=== PATIENT | male | born 1945 | race Caucasian/White ===

== ENCOUNTER 2017-05-31 13:14 | Emergency (ER) | payer MEDICARE ==
[~2017-05-31] VITALS: Wt 50.9 kg
[2017-05-31 16:40] VITALS: BP 137/91
== END 2017-05-31 15:44 | disposition other institution (70) ==
LOC: ED 13:14
DX: E87.1 Hypo-osmolality and hyponatremia (principal); I10 Essential (primary) hypertension; E46 Unspecified protein-calorie malnutrition; F10.10 Alcohol abuse, uncomplicated; J44.9 Chronic obstructive pulmonary disease, unspecified; K21.9 Gastro-esophageal reflux disease without esophagitis; F17.200 Nicotine dependence, unspecified, uncomplicated

== ENCOUNTER 2017-05-31 15:44 | Inpatient (IN) | payer MEDICARE ==
[~2017-05-31] VITALS: Ht 152.4 cm; Wt 48.5 kg
--- NOTE | 2017-05-31 16:00 | NUR ---
Pt admitted to room 206. Alert and oriented. Reports abd pain has improved from ER visit but continues to feel nauseated. Resting in bed. Oriented to room and surroudings. IV to left AC that was started in ER. Pt educated on importance of fluid restrition and pt verbalizes understanding. Seizure precautions in place. Call light in reach and bed alarm on.
[2017-05-31 16:17] VITALS: BP 137/91
[2017-05-31 18:35] VITALS: BP 118/72
--- NOTE | 2017-05-31 19:35 | NUR ---
Assessment complete. Pt alert and oriented at this time. Pt c/o pain in abd, left leg and right knee. Rates pain 7/10. Will give Ultram. O2 on at 2L NC. LS clear in upper lobes but dim in bases. Pt has active BS but states LBM was 2 days ago. States he is passing gas, but is slightly nauseated. Will monitor. pt report eating well. IV in LAC WNL. Pt does have pads on rails for siezure precautions d/t low sodium level. Pt is on 1500 ml fluid restriction. Pt denies any needs at this time. Reviewed call light and bed alarm.
[2017-05-31 23:26] VITALS: BP 115/76
--- NOTE | 2017-06-01 01:07 | NUR ---
Report given to FARHAN Rust.
--- NOTE | 2017-06-01 01:20 | NUR ---
Pt requests pain medication for 05/01 pain to R leg. Reports that he has fallen several times at home since d/c from [facility] and thinks he may have hurt it during a fall. Pt also asks about getting something to help him sleep as he is having trouble falling/staying asleep. Tell pt that request will be made to provider as there is nothing specifically for sleep on his MAR.
--- NOTE | 2017-06-01 02:00 | NUR ---
Upon return to pt room to reassess pain, pt noted to be sleeping.
--- NOTE | 2017-06-01 03:00 | NUR ---
Pt calls, asks if any medication has been added to MAR for sleep. Inform that upon reassessment, pt was sleeping. Inform provider of pt request, benadryl added to MAR and given at this time.
[2017-06-01 03:08] VITALS: BP 124/77
[2017-06-01 06:36] VITALS: BP 109/74
--- NOTE | 2017-06-01 08:03 | NUR ---
Dr. Cameron notified of critical lab values, and patient's request for a stool softener and laxative. New orders received.
--- NOTE | 2017-06-01 09:25 | NUR ---
Valentina Medina PA-C at bedside.
[2017-06-01 10:55] VITALS: BP 101/74
[2017-06-01 15:11] VITALS: BP 112/76
[2017-06-01 18:32] VITALS: BP 92/63
--- NOTE | 2017-06-01 21:38 | NUR ---
PT UP WITH STAFF AND AMBULATED TO THE ER AND BACK TO ROOM AND THEN TO THE NURSES STATION AND BACK TO THE ROOM WITH GAIT BELT, SBA AND WHEELED WALKER FROM HOME. STATES THAT HE LIKE HIS WALKER BETTER. PT C/O LEG PAIN STATES THAT HE ALWAYS HAS IT AND RATES IT AT A 6, REQUESTS TO HAVE TRAMADOL WITH HS MED[facility]. PT TAKES OFF O2 AND PUTS IT ON WHEN HE WANTS, STATES THAT HE USES IT WHILE IN BED.
[2017-06-01 22:30] VITALS: BP 122/81
--- NOTE | 2017-06-01 22:34 | NUR ---
PT ACROSS PEREZ FROM THIS PT CALLED NURSING STAFF STATING THAT THIS PT HAD FALLEN, FOUND PT SITTING ON FLOOR IN FRONT OF SINK IN PT ROOM WITH WC INFRONT OF HIM. PT STATES THAT HE GOT UP TO USE BATHROOM. PT BED ALARM OFF. ASKED PT IF HE TURNED IT OFF IT WAS TURNED ON BY THIS NURSE AFTER PT WALK EARLIER. PT STATES "I KNOW HOW". PT ABLE TO MOVE ALL EXTREMITIES, SLIGHTLY REDDENED AREA ON COCCYX, DENIES PAIN IN THAT AREA. PT IS UNSTEADY, ASSISTED BACK TO BED AND ALARM TURNED ON AND CONTROLLS LOCKED. PT PLACED BACK ON OXYGEN. VSS
[2017-06-02 02:38] VITALS: BP 122/80
[2017-06-02 06:28] VITALS: BP 109/73
--- NOTE | 2017-06-02 08:07 | NUR ---
Valentina Medina PA-C at bedside.
[2017-06-02 11:00] VITALS: BP 115/87
--- NOTE | 2017-06-02 11:00 | NUR ---
Pt will discharge to [facility] for continued care in their SNF with an anticipated less than 30 day stay, although if pt adjusts well, it would benefit him to continue care in LTCF due to his h/o self neglect and his home being to hot for him to maintain good health. There is a potential pt will need LTC placement, which at this point remains to be determined. LTCF staff is aware, pt records are sent to [facility] and they accept pt. Pt is agreeable to going to LTC for continued care in SNF LOC.
[2017-06-02 13:05] VITALS: BP 110/72
[2017-06-02 13:22] VITALS: BP 110/72
--- NOTE | 2017-06-02 13:43 | NUR ---
Patient alert and oriented. States pain to legs has improved since taking tramadol. Oxygen at 2 liters via nasal cannula. Denies shortness of breath or dizziness. Denies nausea today. Denies needs or questions at this time. Discharged [place] [facility]. Out of facility to [facility] via wheelchair with [facility] staff.
== END 2017-06-02 13:43 | DRG 641 ==
LOC: MED/SURG 15:44
PROVIDERS: ADMIT Physician Assistant
DX: E87.1 Hypo-osmolality and hyponatremia (principal); E46 Unspecified protein-calorie malnutrition; J44.9 Chronic obstructive pulmonary disease, unspecified; I10 Essential (primary) hypertension; F10.10 Alcohol abuse, uncomplicated; K21.9 Gastro-esophageal reflux disease without esophagitis; R53.81 Other malaise; W18.39XA Other fall on same level, initial encounter; Y92.230 Patient room in hospital as the place of occurrence of the external cause; Y90.0 Blood alcohol level of less than 20 mg/100 ml
CPT/HCPCS: J1650

== ENCOUNTER → 2017-06-05 | Outpatient (REF) ==
[2017-06-02 13:22] VITALS: BP 110/72
== END ==
LOC: LAB 06:25
DX: E87.1 Hypo-osmolality and hyponatremia (principal)

== ENCOUNTER → 2017-06-15 | Outpatient (REF) ==
[2017-06-02 13:22] VITALS: BP 110/72
== END ==
LOC: LAB 05:35
DX: I10 Essential (primary) hypertension (principal)

== ENCOUNTER → 2017-07-11 | Outpatient (CLI) | payer MEDICARE | LOC: LAB 09:47 | DX: I10 Essential (primary) hypertension (principal); D64.9 Anemia, unspecified; R73.02 Impaired glucose tolerance (oral); R97.20 Elevated prostate specific antigen [PSA]; E78.2 Mixed hyperlipidemia; N52.03 Combined arterial insufficiency and corporo-venous occlusive erectile dysfunction; R20.2 Paresthesia of skin ==

== ENCOUNTER → 2017-08-28 | Outpatient (CLI) | payer MEDICARE | LOC: LAB 06:00 | DX: E03.9 Hypothyroidism, unspecified (principal) ==

== ENCOUNTER 2017-11-27 14:13 | Observation (INO) | payer MEDICARE, MEDICAID ==
[~2017-11-27] VITALS: Ht 180.3 cm; Wt 48.7 kg
[2017-11-27] MEDS ORDERED: SILDENAFIL CITR20 MG PO (14:25)
[2017-11-27] MEDS ORDERED: FLUOXETINE HCL10 MG PO (14:25)
[2017-11-27] MEDS ORDERED: SYMBICORT1 AE2 IH (14:25)
[2017-11-27] MEDS ORDERED: TRAMADOL 50 MG TAB PO (14:26)
[2017-11-27] MEDS ORDERED: LEVOTHYROXIN0.075 MG PO (14:26)
[2017-11-27] MEDS ORDERED: RT SPIRIVA INH18 MCG IH (14:26)
[2017-11-27] MEDS ORDERED: PROAIR HFA0.09 MG/AC IH (14:26)
[2017-11-27] MEDS ORDERED: SINGULAIR 110 MG/TAB PO (14:27)
[2017-11-27] MEDS ORDERED: AMLODIPINE BESYL5 MG PO (14:27)
[2017-11-27 15:05] LABS: EOS # 0.1 (0.04-0.40); HEMATOCRIT 39.1 % (42.0-52.0); HEMOGLOBIN 12.9 g/dL (13.5-18.0); LYMPH# 1.8 (1.50-4.00); MEAN CELL VOLUME 86 fl (78-100); MEAN CORPUSCULAR HEMOGLOBIN 28 pg (27-31); MEAN CORPUSCULAR HGB CONC 33 g/dL (33-37); MEAN PLATELET VOLUME 9.1 fl (7.4-10.4); NEU # 6.8 (1.40-6.50); RED BLOOD COUNT 4.54 M/mm3 (4.20-5.60); RED CELL DISTRIBUTION WIDTH 13.9 % (11.5-14.5); WHITE BLOOD COUNT 9.7 K/mm3 (4.8-10.8)
[2017-11-27 15:08] LABS: ALBUMIN 3.6 g/dL (3.5-5.0); BUN/CREATININE RATIO 19.8 (6.0-26.0); POTASSIUM 4.2 mmol/L (3.6-5.0); TOTAL BILIRUBIN 0.3 mg/dL (0.2-1.3)
[2017-11-27 15:27] LABS: PLATELET COUNT 588 K/mm3 (130-400)
[2017-11-27 15:43] LABS: D-DIMER 4.23 mg/L FEU (0.15-0.50)
[2017-11-27 19:08] LABS: URINE APPEARANCE CLEAR; URINE BILIRUBIN NEGATIVE (NEGATIVE); URINE BLOOD NEGATIVE (NEGATIVE); URINE COLOR YELLOW; URINE GLUCOSE NEGATIVE (NEGATIVE); URINE KETONE 1+ (NEGATIVE); URINE LEUKOCYTE ESTERASE NEGATIVE (NEGATIVE); URINE NITRATE NEGATIVE (NEGATIVE); URINE PROTEIN(semi-quant) TRACE mg/dL (NEGATIVE); URINE UROBILINOGEN NORMAL (NORMAL)
[2017-11-27 21:04] VITALS: BP 141/85
[2017-11-27 22:37] VITALS: BP 120/75
[2017-11-28 02:21] VITALS: BP 135/79
[2017-11-28 06:26] VITALS: BP 136/85
[2017-11-28 06:38] LABS: HEMATOCRIT 38.8 % (42.0-52.0); HEMOGLOBIN 12.8 g/dL (13.5-18.0); MEAN CELL VOLUME 87 fl (78-100); MEAN CORPUSCULAR HEMOGLOBIN 29 pg (27-31); MEAN CORPUSCULAR HGB CONC 33 g/dL (33-37); MEAN PLATELET VOLUME 8.9 fl (7.4-10.4); RED BLOOD COUNT 4.47 M/mm3 (4.20-5.60); RED CELL DISTRIBUTION WIDTH 13.9 % (11.5-14.5); WHITE BLOOD COUNT 6.1 K/mm3 (4.8-10.8)
[2017-11-28 06:58] LABS: PLATELET COUNT 566 K/mm3 (130-400)
[2017-11-28 06:59] LABS: ALBUMIN 3.6 g/dL (3.5-5.0); BUN/CREATININE RATIO 24.6 (6.0-26.0); POTASSIUM 4.5 mmol/L (3.6-5.0); TOTAL BILIRUBIN 0.2 mg/dL (0.2-1.3)
[2017-11-28 07:03] LABS: LYMPHOCYTE 23 % (20-51); NEUTROPHILS 77 % (42-75)
[2017-11-28 11:00] VITALS: BP 124/66
[2017-11-28 15:18] VITALS: BP 125/81
== END 2017-11-28 08:33 | disposition other institution (70) ==
LOC: ED 14:13 → MED/SURG 20:00
PROVIDERS: Nurse Practitioner; ADMIT Nurse Practitioner Primary Care
DX: J44.1 Chronic obstructive pulmonary disease with (acute) exacerbation (principal); E87.1 Hypo-osmolality and hyponatremia; I10 Essential (primary) hypertension; R74.9 Abnormal serum enzyme level, unspecified; I45.10 Unspecified right bundle-branch block; F17.200 Nicotine dependence, unspecified, uncomplicated; F32.9 Major depressive disorder, single episode, unspecified; E07.9 Disorder of thyroid, unspecified
CPT/HCPCS: G0378; J0456; J0696; J1650; J2930; J7030; J7050; Q9967

== ENCOUNTER 2017-11-28 08:34 | Inpatient (IN) | payer MEDICARE, MEDICAID ==
[~2017-11-28] VITALS: Ht 180.3 cm; Wt 48.7 kg
[~2017-11-28 08:34] MED LIST: AMLODIPINE BESYL5 MG PO; FLUOXETINE HCL10 MG PO; LEVOTHYROXIN0.075 MG PO; PROAIR HFA0.09 MG/AC IH; RT SPIRIVA INH18 MCG IH; SILDENAFIL CITR20 MG PO; SINGULAIR 110 MG/TAB PO; SYMBICORT1 AE2 IH; TRAMADOL 50 MG TAB PO
[2017-11-28 10:04] VITALS: BP 136/85
[2017-11-28 14:04] VITALS: BP 124/66
[2017-11-28 18:04] VITALS: BP 125/81
[2017-11-28 19:04] VITALS: BP 147/64
[2017-11-28 19:18] VITALS: BP 124/66
[2017-11-28 22:57] VITALS: BP 139/80
[2017-11-29 02:34] VITALS: BP 132/74
[2017-11-29 06:23] VITALS: BP 130/76
[2017-11-29 06:26] LABS: BUN/CREATININE RATIO 21.8 (6.0-26.0); CALCIUM 8.7 mg/dL (8.4-10.2); POTASSIUM 4.1 mmol/L (3.6-5.0)
[2017-11-29 11:10] VITALS: BP 135/81
[2017-11-29 15:05] VITALS: BP 130/75
[2017-11-29 18:23] VITALS: BP 144/80
[2017-11-29 23:22] VITALS: BP 125/72
[2017-11-30 02:52] VITALS: BP 142/82
[2017-11-30 06:38] VITALS: BP 161/85
[2017-11-30 11:01] VITALS: BP 104/67; BP 145/87
[2017-11-30 15:15] VITALS: BP 155/90
[2017-11-30 18:20] VITALS: BP 155/89; BP 155/90
[2017-11-30 23:07] VITALS: BP 132/82
[2017-12-01 03:15] VITALS: BP 161/88
[2017-12-01 06:26] VITALS: BP 153/90
[2017-12-01] MEDS ORDERED: CEFDINIR300 MG PO (08:01)
[2017-12-01] MEDS ORDERED: IPRATROPIUM BROM3 M1 IH (08:02)
[2017-12-01] MEDS ORDERED: CLOPIDOGREL PO (08:03)
[2017-12-01] MEDS ORDERED: METOPROLOL SUCC50 M1 PO (08:03)
[2017-12-01] MEDS ORDERED: PRINIVIL5 M1 PO (08:04)
[2017-12-01] MEDS ORDERED: PROTONIX TR40 M1 PO (08:05)
[2017-12-01] MEDS ORDERED: MUCUS ER1200 MG PO (08:05)
[2017-12-01 08:31] VITALS: BP 153/90
== END 2017-12-01 09:45 | DRG 281 ==
LOC: MED/SURG 08:34
PROVIDERS: ADMIT Internal Medicine
DX: I21.A1 Myocardial infarction type 2 (principal); J44.1 Chronic obstructive pulmonary disease with (acute) exacerbation; E87.1 Hypo-osmolality and hyponatremia; I10 Essential (primary) hypertension; E03.9 Hypothyroidism, unspecified; F17.210 Nicotine dependence, cigarettes, uncomplicated
CPT/HCPCS: J0456; J0696; J1650; J2930; J7030; J7050; J7512

== ENCOUNTER → 2017-12-01 | Outpatient (CLI) | payer MEDICARE, MEDICAID ==
[~2017-12-01] MED LIST changes: +CEFDINIR300 MG PO; +CLOPIDOGREL PO; +IPRATROPIUM BROM3 M1 IH; +METOPROLOL SUCC50 M1 PO; +MUCUS ER1200 MG PO; +PRINIVIL5 M1 PO; +PROTONIX TR40 M1 PO
[2017-12-01 08:31] VITALS: BP 153/90
== END ==
LOC: CARDREHAB 09:47
DX: I21.4 Non-ST elevation (NSTEMI) myocardial infarction (principal); J44.9 Chronic obstructive pulmonary disease, unspecified
CPT/HCPCS: A9500

== ENCOUNTER → 2017-12-18 | Day surgery (SDC) | payer MEDICARE, MEDICAID ==
[2017-12-01 08:31] VITALS: BP 153/90
== END ==
LOC: MSO 09:46
DX: R11.0 Nausea (principal); R63.4 Abnormal weight loss; R62.7 Adult failure to thrive; Z87.891 Personal history of nicotine dependence; F10.11 Alcohol abuse, in remission; K44.9 Diaphragmatic hernia without obstruction or gangrene; I10 Essential (primary) hypertension; I25.2 Old myocardial infarction; J44.9 Chronic obstructive pulmonary disease, unspecified; K21.9 Gastro-esophageal reflux disease without esophagitis; Z79.02 Long term (current) use of antithrombotics/antiplatelets; Z79.82 Long term (current) use of aspirin; E03.9 Hypothyroidism, unspecified; F41.9 Anxiety disorder, unspecified; D64.9 Anemia, unspecified
CPT/HCPCS: J2704; J7120

== ENCOUNTER → 2018-01-08 | Outpatient (CLI) | payer MEDICARE, MEDICAID ==
[2018-01-08 12:26] LABS: EOS # 0.2 (0.04-0.40); EOS % 2.2 % (0.0-4.0); HEMATOCRIT 41.7 % (42.0-52.0); HEMOGLOBIN 13.5 g/dL (13.5-18.0); LYMPH# 1.7 (1.50-4.00); MEAN CELL VOLUME 90 fl (78-100); MEAN CORPUSCULAR HEMOGLOBIN 29 pg (27-31); MEAN CORPUSCULAR HGB CONC 32 g/dL (33-37); NEU # 6.1 (1.40-6.50); PLATELET COUNT 297 K/mm3 (130-400); RED BLOOD COUNT 4.65 M/mm3 (4.20-5.60); WHITE BLOOD COUNT 9.1 K/mm3 (4.8-10.8)
[2018-01-08 12:38] LABS: ALBUMIN 4.2 g/dL (3.5-5.0); BUN/CREATININE RATIO 18.1 (6.0-26.0); CALCIUM 9.1 mg/dL (8.4-10.2); TOTAL BILIRUBIN 0.2 mg/dL (0.2-1.3); TOTAL PROTEIN 7.5 g/dL (6.3-8.2)
[2018-01-08 13:29] LABS: ERYTHROCYTE SEDIMENTATION RATE 9 mm/hr (0-20)
== END ==
LOC: LAB 12:13
PROVIDERS: Internal Medicine
DX: E78.2 Mixed hyperlipidemia (principal); I10 Essential (primary) hypertension; E03.4 Atrophy of thyroid (acquired)

== ENCOUNTER → 2018-06-07 | Outpatient (CLI) | payer MEDICARE, MEDICAID ==
[2018-06-07 06:34] LABS: EOS # 0.2 (0.04-0.40); EOS % 2.5 % (0.0-4.0); HEMATOCRIT 39.8 % (42.0-52.0); HEMOGLOBIN 13.1 g/dL (13.5-18.0); LYMPH# 2.6 (1.50-4.00); MEAN CELL VOLUME 91 fl (78-100); MEAN CORPUSCULAR HEMOGLOBIN 30 pg (27-31); MEAN CORPUSCULAR HGB CONC 33 g/dL (33-37); MEAN PLATELET VOLUME 10.4 fl (7.4-10.4); MONO # 0.7 (0.20-0.80); NEU # 4.4 (1.40-6.50); PLATELET COUNT 259 K/mm3 (130-400); RED BLOOD COUNT 4.37 M/mm3 (4.20-5.60); RED CELL DISTRIBUTION WIDTH 14.2 % (11.5-14.5); WHITE BLOOD COUNT 8.1 K/mm3 (4.8-10.8)
[2018-06-07 07:00] LABS: ALBUMIN 3.9 g/dL (3.5-5.0); BUN/CREATININE RATIO 20.1 (6.0-26.0); CALCIUM 8.8 mg/dL (8.4-10.2); POTASSIUM 4.2 mmol/L (3.6-5.0); TOTAL BILIRUBIN 0.2 mg/dL (0.2-1.3); TOTAL PROTEIN 6.7 g/dL (6.3-8.2)
== END ==
LOC: LAB 06:05
PROVIDERS: Internal Medicine
DX: I10 Essential (primary) hypertension (principal); E78.5 Hyperlipidemia, unspecified

== ENCOUNTER → 2018-12-21 | Outpatient (CLI) | payer MEDICARE, MEDICAID ==
[2018-12-21 22:00] LABS: BASO # 0.1 (0.02-0.10); EOS # 0.2 (0.04-0.40); EOS % 1.6 % (0.0-4.0); HEMATOCRIT 47.7 % (42.0-52.0); HEMOGLOBIN 15.3 g/dL (13.5-18.0); LYMPH# 2.4 (1.50-4.00); MEAN CELL VOLUME 92 fl (78-100); MEAN CORPUSCULAR HEMOGLOBIN 30 pg (27-31); MEAN CORPUSCULAR HGB CONC 32 g/dL (33-37); NEU # 8.1 (1.40-6.50); PLATELET COUNT 313 K/mm3 (130-400); RED BLOOD COUNT 5.17 M/mm3 (4.20-5.60); RED CELL DISTRIBUTION WIDTH 14.2 % (11.5-14.5); WHITE BLOOD COUNT 11.8 K/mm3 (4.8-10.8)
[2018-12-21 22:06] LABS: ALBUMIN 4.8 g/dL (3.5-5.0); CALCIUM 9.6 mg/dL (8.4-10.2); POTASSIUM 4.4 mmol/L (3.6-5.0); TOTAL BILIRUBIN 0.4 mg/dL (0.2-1.3); TOTAL PROTEIN 8.3 g/dL (6.3-8.2)
[2018-12-21 23:29] LABS: ERYTHROCYTE SEDIMENTATION RATE 8 mm/hr (0-20)
== END ==
LOC: LAB 11:34
PROVIDERS: Internal Medicine
DX: I10 Essential (primary) hypertension (principal); E78.2 Mixed hyperlipidemia; Z12.5 Encounter for screening for malignant neoplasm of prostate

== ENCOUNTER → 2018-12-25 | Outpatient (CLI) | payer MEDICARE, MEDICAID | LOC: LAB 12:35 | DX: R73.02 Impaired glucose tolerance (oral) (principal) ==

== ENCOUNTER → 2018-12-26 | Outpatient (CLI) | payer MEDICARE, MEDICAID | LOC: LAB 12:14 | DX: R73.02 Impaired glucose tolerance (oral) (principal) ==

== ENCOUNTER → 2019-07-02 | Outpatient (CLI) | payer MEDICARE, MEDICAID ==
[2019-07-02 11:15] LABS: BASO # 0.1 (0.02-0.10); EOS # 0.4 (0.04-0.40); EOS % 3.9 % (0.0-4.0); HEMATOCRIT 46.8 % (42.0-52.0); HEMOGLOBIN 15.2 g/dL (13.5-18.0); LYMPH# 2.2 (1.50-4.00); MEAN CELL VOLUME 93 fl (78-100); MEAN CORPUSCULAR HEMOGLOBIN 30 pg (27-31); MEAN CORPUSCULAR HGB CONC 33 g/dL (33-37); MEAN PLATELET VOLUME 10.6 fl (7.4-10.4); MONO # 0.9 (0.20-0.80); NEU # 6.7 (1.40-6.50); PLATELET COUNT 274 K/mm3 (130-400); RED BLOOD COUNT 5.04 M/mm3 (4.20-5.60); RED CELL DISTRIBUTION WIDTH 13.8 % (11.5-14.5); WHITE BLOOD COUNT 10.3 K/mm3 (4.8-10.8)
[2019-07-02 11:21] LABS: POTASSIUM 4.4 mmol/L (3.5-5.1)
[2019-07-02 11:22] LABS: ALBUMIN 4.5 g/dL (3.4-4.8)
[2019-07-02 11:23] LABS: CALCIUM 9.6 mg/dL (8.3-10.5)
[2019-07-02 11:24] LABS: TOTAL PROTEIN 7.8 g/dL (6.2-8.1)
[2019-07-02 11:26] LABS: TOTAL BILIRUBIN 0.2 mg/dL (0.2-1.2)
== END ==
LOC: LAB 11:04
PROVIDERS: Internal Medicine
DX: I10 Essential (primary) hypertension (principal); E78.5 Hyperlipidemia, unspecified; R73.01 Impaired fasting glucose

== ENCOUNTER → 2019-08-07 | Outpatient (CLI) | payer MEDICARE, MEDICAID | LOC: RAD 15:00 | DX: J44.9 Chronic obstructive pulmonary disease, unspecified (principal); J84.89 Other specified interstitial pulmonary diseases ==

== ENCOUNTER → 2020-01-06 | Outpatient (CLI) | payer MEDICARE, MEDICAID ==
[2020-01-06 08:04] LABS: EOS # 0.1 (0.04-0.40); EOS % 1.1 % (0.0-4.0); HEMATOCRIT 42.2 % (42.0-52.0); HEMOGLOBIN 13.5 g/dL (13.5-18.0); MEAN CELL VOLUME 92 fl (78-100); MEAN CORPUSCULAR HEMOGLOBIN 29 pg (27-31); MEAN CORPUSCULAR HGB CONC 32 g/dL (33-37); MEAN PLATELET VOLUME 10.4 fl (7.4-10.4); MONO # 0.6 (0.20-0.80); NEU # 5.5 (1.40-6.50); PLATELET COUNT 364 K/mm3 (130-400); RED BLOOD COUNT 4.59 M/mm3 (4.20-5.60); WHITE BLOOD COUNT 8.3 K/mm3 (4.8-10.8)
[2020-01-09 12:51] LABS: ALBUMIN 3.9 g/dL (3.4-4.8)
[2020-01-09 12:52] LABS: POTASSIUM 4.5 mmol/L (3.5-5.1)
[2020-01-09 12:53] LABS: CALCIUM 9.6 mg/dL (8.3-10.5)
[2020-01-09 12:54] LABS: TOTAL PROTEIN 6.7 g/dL (6.2-8.1)
[2020-01-09 12:56] LABS: TOTAL BILIRUBIN 0.2 mg/dL (0.2-1.2)
== END ==
LOC: LAB 07:08
PROVIDERS: Internal Medicine
DX: E87.1 Hypo-osmolality and hyponatremia (principal); I10 Essential (primary) hypertension; E78.5 Hyperlipidemia, unspecified; R73.02 Impaired glucose tolerance (oral)

== ENCOUNTER → 2020-05-27 | Outpatient (CLI) | payer MEDICARE, MEDICAID ==
[2020-05-27 08:13] LABS: EOS # 0.2 (0.04-0.40); EOS % 2.6 % (0.0-4.0); HEMATOCRIT 46.9 % (42.0-52.0); HEMOGLOBIN 15.2 g/dL (13.5-18.0); LYMPH# 2.2 (1.50-4.00); MEAN CELL VOLUME 92 fl (78-100); MEAN CORPUSCULAR HEMOGLOBIN 30 pg (27-31); MEAN CORPUSCULAR HGB CONC 32 g/dL (33-37); MEAN PLATELET VOLUME 10.9 fl (7.4-10.4); MONO # 0.7 (0.20-0.80); NEU # 5.8 (1.40-6.50); PLATELET COUNT 248 K/mm3 (130-400); RED BLOOD COUNT 5.08 M/mm3 (4.20-5.60); RED CELL DISTRIBUTION WIDTH 13.6 % (11.5-14.5); WHITE BLOOD COUNT 8.9 K/mm3 (4.8-10.8)
[2020-05-27 08:17] LABS: ALBUMIN 4.6 g/dL (3.4-4.8); POTASSIUM 4.2 mmol/L (3.5-5.1)
[2020-05-27 08:18] LABS: CALCIUM 9.6 mg/dL (8.3-10.5)
[2020-05-27 08:20] LABS: TOTAL PROTEIN 8.1 g/dL (6.2-8.1)
[2020-05-27 08:21] LABS: TOTAL BILIRUBIN 0.3 mg/dL (0.2-1.2)
== END ==
LOC: LAB 07:37
PROVIDERS: Internal Medicine
DX: I10 Essential (primary) hypertension (principal); R97.20 Elevated prostate specific antigen [PSA]; E78.2 Mixed hyperlipidemia

== ENCOUNTER 2020-06-07 11:03 | Emergency (ER) | payer MEDICARE, MEDICAID ==
[~2020-06-07] VITALS: Ht 170.2 cm; Wt 81.2 kg
[2020-06-07] MEDS ORDERED: SILDENAFIL CITR20 M1 PO (11:27)
[2020-06-07] MEDS ORDERED: AFRIN PUMPMIST15 ML NS (11:29)
[2020-06-07] MEDS ORDERED: ASPIRIN 81M81 MG/TA2 PO (11:30)
[2020-06-07] MEDS ORDERED: BIOTENE DRY MO473 ML MM (11:31)
[2020-06-07] MEDS ORDERED: IPRATROPIUM BROM3 M1 IH (11:32)
[2020-06-07] MEDS ORDERED: COLACE100 M1 PO (11:32)
[2020-06-07] MEDS ORDERED: INCRUSE EL62.5 MCG/A IH (11:33)
[2020-06-07 11:57] LABS: HEMATOCRIT 44.1 % (42.0-52.0); HEMOGLOBIN 14.4 g/dL (13.5-18.0); MEAN CELL VOLUME 93 fl (78-100); MEAN CORPUSCULAR HEMOGLOBIN 30 pg (27-31); MEAN CORPUSCULAR HGB CONC 33 g/dL (33-37); MEAN PLATELET VOLUME 10.5 fl (7.4-10.4); PLATELET COUNT 258 K/mm3 (130-400); RED BLOOD COUNT 4.75 M/mm3 (4.20-5.60); RED CELL DISTRIBUTION WIDTH 13.5 % (11.5-14.5); WHITE BLOOD COUNT 17.2 K/mm3 (4.8-10.8)
[2020-06-07 12:05] LABS: POTASSIUM 4.2 mmol/L (3.5-5.1); SODIUM 140 mmol/L (136-145)
[2020-06-07 12:06] LABS: CALCIUM 9.4 mg/dL (8.3-10.5)
[2020-06-07 12:07] LABS: GLUCOSE 95 mg/dL (75-110); LYMPHOCYTE 10 % (20-51); MONOCYTE 2 % (3-10); NEUTROPHILS 88 % (42-75)
[2020-06-07 12:08] LABS: CARBON DIOXIDE 25 mmol/L (23-31)
[2020-06-07 12:10] LABS: D-DIMER 0.24 mg/L FEU (0.15-0.50)
[2020-06-07 12:19] LABS: TROPONIN-I < 0.03 ng/mL (<0.030)
[2020-06-07] MEDS ORDERED: PREDNISONE20 M1 PO (14:08)
[2020-06-07] MEDS ORDERED: MORGIDOX 1X100100 MG PO (14:08)
[2020-06-07 14:45] VITALS: BP 135/96
== END 2020-06-07 14:45 | disposition home or self-care (01) ==
LOC: ED 11:03
PROVIDERS: Family Medicine
DX: J44.1 Chronic obstructive pulmonary disease with (acute) exacerbation (principal); E03.9 Hypothyroidism, unspecified; Z87.891 Personal history of nicotine dependence; Z79.890 Hormone replacement therapy
CPT/HCPCS: J0696; J2930

== ENCOUNTER → 2020-12-04 | Outpatient (CLI) | payer MEDICARE, MEDICAID ==
[~2020-12-04] MED LIST changes: +AFRIN PUMPMIST15 ML NS; +ASPIRIN 81M81 MG/TA2 PO; +BIOTENE DRY MO473 ML MM; +COLACE100 M1 PO; +INCRUSE EL62.5 MCG/A IH; +MORGIDOX 1X100100 MG PO; +PREDNISONE20 M1 PO; +SILDENAFIL CITR20 M1 PO
[2020-12-04 17:06] LABS: EOS # 0.3 (0.04-0.40); EOS % 3.2 % (0.0-4.0); HEMATOCRIT 43.6 % (42.0-52.0); HEMOGLOBIN 13.8 g/dL (13.5-18.0); LYMPH# 2.5 (1.50-4.00); MEAN CELL VOLUME 94 fl (78-100); MEAN CORPUSCULAR HEMOGLOBIN 30 pg (27-31); MEAN CORPUSCULAR HGB CONC 32 g/dL (33-37); NEU # 5.9 (1.40-6.50); PLATELET COUNT 266 K/mm3 (130-400); RED BLOOD COUNT 4.66 M/mm3 (4.20-5.60); RED CELL DISTRIBUTION WIDTH 13.4 % (11.5-14.5); WHITE BLOOD COUNT 9.8 K/mm3 (4.8-10.8)
[2020-12-04 17:14] LABS: ALBUMIN 3.9 g/dL (3.4-4.8)
[2020-12-04 17:15] LABS: POTASSIUM 4.1 mmol/L (3.5-5.1)
[2020-12-04 17:16] LABS: CALCIUM 8.6 mg/dL (8.3-10.5)
[2020-12-04 17:17] LABS: TOTAL PROTEIN 6.3 g/dL (6.2-8.1)
[2020-12-04 17:19] LABS: TOTAL BILIRUBIN 0.2 mg/dL (0.2-1.2)
[2020-12-04 17:24] LABS: MAGNESIUM 1.81 mg/dL (1.60-2.60)
== END ==
LOC: LAB 16:54
PROVIDERS: Internal Medicine
DX: K90.9 Intestinal malabsorption, unspecified (principal); E03.4 Atrophy of thyroid (acquired); E87.1 Hypo-osmolality and hyponatremia; J44.9 Chronic obstructive pulmonary disease, unspecified; I10 Essential (primary) hypertension

== ENCOUNTER → 2021-06-10 | Outpatient (CLI) | payer MEDICARE, MEDICAID ==
[~2021-06-10] MED LIST changes: +BETAMETHASONE D0.05% TOP; +DECADRON6 M1 PO; +ONDANSETRON HYDR4 MG PO; +VITAMIN D21250 MCG PO
[2021-06-10 11:53] LABS: URINE WBC 0 /hpf (0-3)
[2021-06-10 11:59] LABS: BASO # 0.06 (0.02-0.10); EOS # 0.23 (0.04-0.40); EOS % 2.6 % (0.0-4.0); HEMATOCRIT 43.5 % (42.0-52.0); HEMOGLOBIN 14.1 g/dL (13.5-18.0); LYMPH# 1.87 (1.50-4.00); MEAN CELL VOLUME 94 fl (78-100); MEAN CORPUSCULAR HEMOGLOBIN 30 pg (27-31); MEAN CORPUSCULAR HGB CONC 32 g/dL (33-37); MONO # 0.67 (0.20-0.80); NEU # 6.15 (1.40-6.50); PLATELET COUNT 259 K/mm3 (130-400); RED BLOOD COUNT 4.65 M/mm3 (4.20-5.60)
[2021-06-10 12:04] LABS: CALCIUM 9.7 mg/dL (8.3-10.5)
[2021-06-10 12:07] LABS: TOTAL BILIRUBIN 0.3 mg/dL (0.2-1.2)
[2021-06-10 12:31] LABS: URINE APPEARANCE HAZY; URINE BILIRUBIN NEGATIVE (NEGATIVE); URINE BLOOD NEGATIVE (NEGATIVE); URINE COLOR YELLOW; URINE GLUCOSE NEGATIVE (NEGATIVE); URINE KETONE NEGATIVE (NEGATIVE); URINE LEUKOCYTE ESTERASE NEGATIVE (NEGATIVE); URINE NITRATE NEGATIVE (NEGATIVE); URINE PROTEIN(semi-quant) NEGATIVE (NEGATIVE); URINE UROBILINOGEN NORMAL (NORMAL)
[2021-06-10 13:11] LABS: ERYTHROCYTE SEDIMENTATION RATE 10 mm/hr (0-20)
[2021-06-10 22:29] LABS: CREATININE OTHER SOURCE 36 mg/dL (())
== END ==
LOC: LAB 11:04
PROVIDERS: Internal Medicine
DX: Z12.5 Encounter for screening for malignant neoplasm of prostate (principal); E03.4 Atrophy of thyroid (acquired); I10 Essential (primary) hypertension; J44.9 Chronic obstructive pulmonary disease, unspecified; R73.03 Prediabetes; K90.9 Intestinal malabsorption, unspecified; L30.9 Dermatitis, unspecified; E55.9 Vitamin D deficiency, unspecified

== ENCOUNTER 2021-09-02 13:11 | Emergency (ER) | payer OTHER ==
[~2021-09-02 13:11] MED LIST changes: -BETAMETHASONE D0.05% TOP; -DECADRON6 M1 PO; -ONDANSETRON HYDR4 MG PO; -VITAMIN D21250 MCG PO
[2021-09-02] MEDS ORDERED: BETAMETHASONE D0.05% TOP (14:13)
[2021-09-02] MEDS ORDERED: VITAMIN D21250 MCG PO (14:13)
[2021-09-02 14:14] LABS: ALBUMIN 3.7 g/dL (3.4-4.8); POTASSIUM 4.2 mmol/L (3.5-5.1); SODIUM 126 mmol/L (136-145)
[2021-09-02] MEDS ORDERED: ONDANSETRON HYDR4 MG PO (14:14)
[2021-09-02 14:15] LABS: CALCIUM 8.4 mg/dL (8.3-10.5)
[2021-09-02 14:16] LABS: GLUCOSE 109 mg/dL (75-110); TOTAL PROTEIN 6.7 g/dL (6.2-8.1)
[2021-09-02 14:17] LABS: CARBON DIOXIDE 24 mmol/L (23-31)
[2021-09-02 14:18] LABS: TOTAL BILIRUBIN 0.3 mg/dL (0.2-1.2)
[2021-09-02 14:22] LABS: AST-SGOT 27 U/L (5-34)
[2021-09-02 14:23] LABS: ALT/SGPT 18 U/L (0-55)
[2021-09-02 14:29] LABS: BASO # 0.03 K/mm3 (0.02-0.10); EOS # 0.01 K/mm3 (0.04-0.40); EOS % 0.1 % (0.0-4.0); HEMATOCRIT 42.8 % (42.0-52.0); HEMOGLOBIN 14.4 g/dL (13.5-18.0); LYMPH# 0.89 K/mm3 (1.50-4.00); MEAN CELL VOLUME 90 fl (78-100); MEAN CORPUSCULAR HEMOGLOBIN 30 pg (27-31); MEAN CORPUSCULAR HGB CONC 34 g/dL (33-37); MEAN PLATELET VOLUME 11.2 fl (7.4-10.4); MONO # 0.55 K/mm3 (0.20-0.80); PLATELET COUNT 157 K/mm3 (130-400); RED BLOOD COUNT 4.74 M/mm3 (4.20-5.60); RED CELL DISTRIBUTION WIDTH 12.4 % (11.5-14.5); WHITE BLOOD COUNT 7.3 K/mm3 (4.8-10.8)
[2021-09-02 14:33] LABS: TROPONIN-I < 0.03 ng/mL (<0.030)
[2021-09-02 14:37] LABS: D-DIMER 0.55 mg/L FEU (0.15-0.50)
[2021-09-02] MEDS ORDERED: CEFDINIR300 MG PO (16:34)
[2021-09-02] MEDS ORDERED: DECADRON6 M1 PO (16:34)
[2021-09-02] MEDS ORDERED: MORGIDOX 1X100100 MG PO (16:35)
[2021-09-02 17:53] VITALS: BP 158/84
== END 2021-09-02 17:17 | disposition home or self-care (01) ==
LOC: ED 13:11
PROVIDERS: Nurse Practitioner Family
DX: U07.1 COVID-19 (principal); J44.1 Chronic obstructive pulmonary disease with (acute) exacerbation; I10 Essential (primary) hypertension; R09.02 Hypoxemia; I25.10 Atherosclerotic heart disease of native coronary artery without angina pectoris; E03.9 Hypothyroidism, unspecified; Z79.899 Other long term (current) drug therapy; Z79.51 Long term (current) use of inhaled steroids; Z79.890 Hormone replacement therapy; Z79.82 Long term (current) use of aspirin
CPT/HCPCS: J0696; J1100; J7030

== ENCOUNTER → 2021-10-21 | Outpatient (CLI) | payer MEDICARE, MEDICAID ==
[~2021-10-21] MED LIST changes: +BETAMETHASONE D0.05% TOP; +DECADRON6 M1 PO; +ONDANSETRON HYDR4 MG PO; +VITAMIN D21250 MCG PO
[2021-10-21 08:27] LABS: BASO # 0.07 K/mm3 (0.02-0.10); EOS # 0.29 K/mm3 (0.04-0.40); EOS % 2.9 % (0.0-4.0); HEMATOCRIT 42.6 % (42.0-52.0); HEMOGLOBIN 13.6 g/dL (13.5-18.0); LYMPH# 1.72 K/mm3 (1.50-4.00); MEAN CELL VOLUME 95 fl (78-100); MEAN CORPUSCULAR HEMOGLOBIN 30 pg (27-31); MEAN CORPUSCULAR HGB CONC 32 g/dL (33-37); MEAN PLATELET VOLUME 10.8 fl (7.4-10.4); MONO # 0.75 K/mm3 (0.20-0.80); NEU # 7.01 K/mm3 (1.40-6.50); PLATELET COUNT 227 K/mm3 (130-400); RED BLOOD COUNT 4.48 M/mm3 (4.20-5.60); RED CELL DISTRIBUTION WIDTH 13.8 % (11.5-14.5); WHITE BLOOD COUNT 9.9 K/mm3 (4.8-10.8)
[2021-10-21 08:32] LABS: ALBUMIN 3.8 g/dL (3.4-4.8); POTASSIUM 4.2 mmol/L (3.5-5.1)
[2021-10-21 08:34] LABS: CALCIUM 9.2 mg/dL (8.3-10.5)
[2021-10-21 08:35] LABS: TOTAL PROTEIN 6.6 g/dL (6.2-8.1)
[2021-10-21 08:37] LABS: TOTAL BILIRUBIN 0.3 mg/dL (0.2-1.2)
[2021-10-21 08:41] LABS: MAGNESIUM 1.77 mg/dL (1.60-2.60)
== END ==
LOC: LAB 08:13
PROVIDERS: Internal Medicine
DX: E03.4 Atrophy of thyroid (acquired) (principal); I10 Essential (primary) hypertension; K90.9 Intestinal malabsorption, unspecified; R73.03 Prediabetes

== ENCOUNTER → 2022-03-17 | Outpatient (CLI) | payer MEDICARE, MEDICAID ==
[2022-03-17 19:00] LABS: BASO # 0.07 K/mm3 (0.02-0.10); EOS # 0.27 K/mm3 (0.04-0.40); HEMATOCRIT 44.2 % (42.0-52.0); HEMOGLOBIN 14.2 g/dL (13.5-18.0); MEAN CELL VOLUME 93 fl (78-100); MEAN CORPUSCULAR HEMOGLOBIN 30 pg (27-31); MEAN CORPUSCULAR HGB CONC 32 g/dL (33-37); MEAN PLATELET VOLUME 11.2 fl (7.4-10.4); MONO # 0.75 K/mm3 (0.20-0.80); NEU # 5.93 K/mm3 (1.40-6.50); PLATELET COUNT 259 K/mm3 (130-400); RED BLOOD COUNT 4.73 M/mm3 (4.20-5.60); RED CELL DISTRIBUTION WIDTH 12.9 % (11.5-14.5); WHITE BLOOD COUNT 8.9 K/mm3 (4.8-10.8)
[2022-03-17 19:03] LABS: ALBUMIN 3.7 g/dL (3.4-4.8)
[2022-03-17 19:04] LABS: POTASSIUM 4.4 mmol/L (3.5-5.1)
[2022-03-17 19:06] LABS: TOTAL PROTEIN 6.3 g/dL (6.2-8.1)
[2022-03-17 19:08] LABS: TOTAL BILIRUBIN 0.2 mg/dL (0.2-1.2)
[2022-03-17 19:12] LABS: MAGNESIUM 1.81 mg/dL (1.60-2.60)
== END ==
LOC: LAB 17:25
PROVIDERS: Internal Medicine
DX: K21.9 Gastro-esophageal reflux disease without esophagitis (principal); J44.9 Chronic obstructive pulmonary disease, unspecified; I10 Essential (primary) hypertension; E03.4 Atrophy of thyroid (acquired); K90.9 Intestinal malabsorption, unspecified; F32.9 Major depressive disorder, single episode, unspecified; M19.019 Primary osteoarthritis, unspecified shoulder; L30.9 Dermatitis, unspecified; R73.03 Prediabetes

== ENCOUNTER → 2022-07-30 | Outpatient (CLI) | payer MEDICARE, MEDICAID | LOC: LAB 08:15 | DX: E55.9 Vitamin D deficiency, unspecified (principal) ==

== ENCOUNTER → 2024-10-07 | Outpatient (CLI) | payer MEDICARE, MEDICAID ==
[2024-10-07 14:38] LABS: BASO # 0.05 K/mm3 (0.02-0.10); EOS # 0.22 K/mm3 (0.04-0.40); EOS % 2.1 % (0.0-4.0); HEMATOCRIT 47.2 % (42.0-52.0); HEMOGLOBIN 14.8 g/dL (13.5-18.0); LYMPH# 1.63 K/mm3 (1.50-4.00); MEAN CELL VOLUME 98 fl (78-100); MEAN CORPUSCULAR HEMOGLOBIN 31 pg (27-31); MEAN CORPUSCULAR HGB CONC 31 g/dL (33-37); MEAN PLATELET VOLUME 10.6 fl (7.4-10.4); MONO # 0.86 K/mm3 (0.20-0.80); NEU # 7.89 K/mm3 (1.40-6.50); PLATELET COUNT 258 K/mm3 (130-400); RED BLOOD COUNT 4.83 M/mm3 (4.20-5.60); RED CELL DISTRIBUTION WIDTH 13.4 % (11.5-14.5); WHITE BLOOD COUNT 10.7 K/mm3 (4.8-10.8)
[2024-10-07 14:45] LABS: ALBUMIN 4.2 g/dL (3.4-4.8)
[2024-10-07 14:46] LABS: CALCIUM 9.9 mg/dL (8.3-10.5)
[2024-10-07 14:47] LABS: TOTAL PROTEIN 7.4 g/dL (6.2-8.1)
[2024-10-07 14:49] LABS: TOTAL BILIRUBIN 0.2 mg/dL (0.2-1.2)
[2024-10-07 14:54] LABS: MAGNESIUM 2.04 mg/dL (1.60-2.60)
== END ==
LOC: LAB 14:20
PROVIDERS: Internal Medicine
DX: I10 Essential (primary) hypertension (principal); R73.03 Prediabetes; K90.9 Intestinal malabsorption, unspecified; E78.2 Mixed hyperlipidemia; K90.0 Celiac disease

== ENCOUNTER 2024-11-01 13:36 | Emergency (ER) | payer MEDICARE, MEDICAID ==
[~2024-11-01] VITALS: Ht 180.3 cm; Wt 80.8 kg
[2024-11-01] MEDS ORDERED: FUROSEMIDE40 MG (14:04)
[2024-11-01] MEDS ORDERED: ACETAMINOPHEN-H1 TA2 PO (14:05)
[2024-11-01] MEDS ORDERED: TRELEGY ELLIPT1 EAC1 IH (14:07)
[2024-11-01] MEDS ORDERED: MUCINEX1200 MG PO (14:08)
[2024-11-01 14:31] LABS: BASO # 0.05 K/mm3 (0.02-0.10); EOS # 0.15 K/mm3 (0.04-0.40); EOS % 1.1 % (0.0-4.0); HEMATOCRIT 46.3 % (42.0-52.0); HEMOGLOBIN 14.5 g/dL (13.5-18.0); LYMPH# 1.39 K/mm3 (1.50-4.00); MEAN CELL VOLUME 96 fl (78-100); MEAN CORPUSCULAR HEMOGLOBIN 30 pg (27-31); MEAN CORPUSCULAR HGB CONC 31 g/dL (33-37); MEAN PLATELET VOLUME 9.8 fl (7.4-10.4); MONO # 1.06 K/mm3 (0.20-0.80); NEU # 11.01 K/mm3 (1.40-6.50); PLATELET COUNT 320 K/mm3 (130-400); RED BLOOD COUNT 4.82 M/mm3 (4.20-5.60); RED CELL DISTRIBUTION WIDTH 13.1 % (11.5-14.5); WHITE BLOOD COUNT 13.8 K/mm3 (4.8-10.8)
[2024-11-01 14:35] LABS: ALBUMIN 3.9 g/dL (3.4-4.8)
[2024-11-01 14:37] LABS: TOTAL PROTEIN 7.3 g/dL (6.2-8.1)
[2024-11-01 14:39] LABS: TOTAL BILIRUBIN 0.2 mg/dL (0.2-1.2)
[2024-11-01] MEDS ORDERED: Doxycycline Monohydrate 100 MG CAP PO ONE (15:00)
[2024-11-01] MEDS ORDERED: predniSONE 20 MG TAB PO ONE (15:00)
[2024-11-01] MEDS ORDERED: PREDNISONE20 M1 PO (15:03)
[2024-11-01] MEDS ORDERED: DOXYCYCLINE HY100 M5 PO (15:03)
[2024-11-01 15:20] VITALS: BP 142/81
== END 2024-11-01 15:20 | disposition home or self-care (01) ==
LOC: ED 13:36
PROVIDERS: Physician Assistant
DX: J44.1 Chronic obstructive pulmonary disease with (acute) exacerbation (principal); J96.20 Acute and chronic respiratory failure, unspecified whether with hypoxia or hypercapnia; D72.829 Elevated white blood cell count, unspecified; Z79.82 Long term (current) use of aspirin
CPT/HCPCS: J7512